=== PATIENT | male | born 1950 | race Caucasian/White ===

== ENCOUNTER 2025-02-19 12:39 | Emergency (ER) | payer OTHER, MEDICARE ==
[~2025-02-19] VITALS: Ht 182.9 cm; Wt 99.0 kg
[~2025-02-19 12:39] MED LIST: CO Q-10100 MG PO; HYDROCODON-ACE1 EA11 PO; L-METHYLFOLATE15 M1 PO; MOVE FREE JOIN1 EACH PO; MULTIVITAMINS1 EAC7 PO; NORCO 5-325 TA1 EACH PO; SERTRALINE HCL100 MG PO; TRAZODONE HCL150 MG PO; TRAZODONE HCL50 MG PO; VITAMIN B-125000 MCG SL; VITAMIN D2000 UNI1 PO
[2025-02-19] MEDS ORDERED: LACTATED RINGER'S 1,000 ML IV ONE (13:00)
[2025-02-19] MEDS ORDERED: RIVAROXABAN2.5 MG PO (13:08)
[2025-02-19 13:20] LABS: BASOPHILS 0.2 % (0.2-1.2); EOSINOPHILS 0.2 % (0.8-7.0); LYMPHOCYTES 10.4 % (21.8-53.1); MCH 32.6 PG (25.7-32.2); MCHC 34.6 g/dL (32.3-36.5); MCV 94.1 fL (79.0-92.2); MONOCYTES 13.1 % (5.3-12.2); NEUTROPHILS 75.7 % (34.0-67.9); RBC 4.42 M/uL (4.63-6.08)
[2025-02-19 13:39] LABS: ALT (SGPT) 39.0 U/L (14-59); AST (SGOT) 76.0 U/L (15-37); GLOMERULAR FILTRATION RATE,EST 96.0 mL/min (>60); PROTEIN, TOTAL 7.5 g/dL (6.4-8.2); UREA NITROGEN 15.0 mg/dL (7-18)
[2025-02-19 13:57] LABS: ABO A; ANTIBODY SCREEN NEGATIVE; RH POSITIVE
[2025-02-19] MEDS ORDERED: ACETAMINOPHEN 500 MG TAB PO ONE (14:00)
[2025-02-19] MEDS ORDERED: KETOROLAC TROMETHAMINE 15 MG/ML VIAL IV ONE (14:00)
[2025-02-19 14:38] VITALS: BP 146/81
== END 2025-02-19 14:38 | disposition home or self-care (01) ==
LOC: ED 12:39
PROVIDERS: Emergency Medicine
DX: S12.600A Unspecified displaced fracture of seventh cervical vertebra, initial encounter for closed fracture (principal); S22.31XA Fracture of one rib, right side, initial encounter for closed fracture; V86.55XA Driver of 3- or 4- wheeled all-terrain vehicle (ATV) injured in nontraffic accident, initial encounter; Z79.899 Other long term (current) drug therapy; Z86.718 Personal history of other venous thrombosis and embolism; Z86.711 Personal history of pulmonary embolism; Z79.01 Long term (current) use of anticoagulants
CPT/HCPCS: 36415; 70450; 71260; 72125; 73030; 74177; 80053; 85025; 86850; 86900; 86901; 96374; 99284-25; A9270; J1885; J7121; Q9967